=== PATIENT | female | born 1960 | race Caucasian/White ===

== ENCOUNTER 2020-10-09 08:29 | Emergency (ER) | payer OTHER ==
[2020-10-09 10:05] LABS: Absolute Lymphocytes (CBC) 0.5 K/uL (0.7-4.9); Basophils % 0.3 % (0-1.3); Hematocrit 45.3 % (36.0-45.0); Lymphocytes % 7.8 % (15.3-44.8); MPV 6.9 fL (7.6-11.3)
[2020-10-09] MEDS ORDERED: MEPERIDINE HCL 50 MG/ML ONE ×2 (10:21→12:16)
[2020-10-09] MEDS ORDERED: NA CHLORIDE 0.9% 1,000 ML ONE ×2 (10:21→12:20)
[2020-10-09] MEDS ORDERED: ONDANSETRON 4 MG/2 ML VIAL ONE (10:21)
[2020-10-09 10:28] LABS: ALT/SGPT 17 U/L (12-78); AST/SGOT 17 U/L (15-37); Albumin 3.9 g/dL (3.4-5.0); Alkaline Phosphatase 90 U/L (45-117); BUN Blood Urea Nitrogen 32 mg/dL (7-18); Bicarbonate 18 mmol/L (21-32); Bilirubin Direct < 0.1 mg/dL (0-0.2); Bilirubin Total 0.4 mg/dL (0.2-1.0); Glucose Level 97 mg/dL (74-106); Lipase 79 U/L (73-393); Potassium 5.1 mmol/L (3.5-5.1); Protein, Total 8.4 g/dL (6.4-8.2); Sodium Level 135 mmol/L (136-145)
--- NOTE | 2020-10-09 10:44 | RAD REPORT ---
EXAM DESCRIPTION: CT - Abdomen Pelvis W Contrast - 10/09/2020 10:23 am CLINICAL HISTORY: vomiting, diarrhea, metastatic vulvar cancer COMPARISON: CHEST PA AND LAT 2 VIEW dated 04/18/2010 TECHNIQUE: Biphasic, helical CT imaging of the abdomen and pelvis was performed following 100 ml non -ionic IV contrast. No oral contrast given. All CT scans are performed using dose optimization technique as appropriate and may include automated exposure control or mA/KV adjustment according to patient size. FINDINGS: Prominent hyperexpansion COPD changes are present in the lung bases with no acute process seen. No cardiomegaly or pericardial effusion. The liver, spleen, and pancreas show no suspicious findings. Gallbladder is distended but shows no in traluminal abnormality. Gallstones can be occult. No wall thickening or pericholecystic fluid seen. Symmetric renal function is seen with no hydronephrosis or suspicious renal mass. No pyelonephritis o r acute parenchymal process. Well filled urinary bladder shows no wall thickening, edema or enhanceme nt. No bladder stone or intraluminal abnormality seen. No adrenal abnormalities. Uterus is not identified and presumed surgically absent. Ovaries are absent, atrophic or obscured by isodense bowel. Primary ovarian process is not suspected. Fluid-filled stomach shows no gross gastric wall thickening or mass. No dilated large or small bowel loops. There is a paucity of intra-abdominal fat which creates carotid abdominal bowel pattern. No ac fabian large or small bowel finding seen. Appendix is not clearly defined. No indirect evidence for appe ndicitis. No free air or pneumatosis. There does appear to be a trace amount of free intraperitoneal fluid. No hernia, mass or bulky lymphadenopathy. Dense arterial tree calcifications are present. No vertebral body compression fracture. Patient has a dvanced degenerative change at the L4-5 disc level. There is severe right hip joint degenerative hernandez ge. No significant left hip joint change. IMPRESSION: Contrast enhanced CT abdomen and pelvis showing no acute or emergent finding. Nonacute findings detailed in the body of the report.
[2020-10-09 13:00] LABS: White Blood Cell Scan OK (OK)
[2020-10-09 13:01] LABS: Blood Morphology Comment NOT SEEN (NOT SEEN); Platelet Estimate ADEQ
--- NOTE | 2020-10-09 13:27 | EDPHYS ---
Physician Documentation [facility] Name: Patt Cabrera Age: 60 yrs Sex: Female : 1960 Arrival Date: 10/09/2020 Time: 08:36 Bed 2 Private MD: ED Physician Domingo Connolly HPI: 10/09 11:52 This 60 yrs old Female presents to ER via Wheelchair with complaints of Pain rn All Over, Diarrhea, Doesn't Feel Right. 11:52 The patient presents to the emergency department with nausea, diarrhea. Onset: The rn symptoms/episode began/occurred 4 day(s) ago. Possible causes: unknown. The symptoms are aggravated by nothing. The symptoms are alleviated by nothing. Associated signs and symptoms: Pertinent positives: abdominal pain, diarrhea, nausea, Pertinent negatives: fever. Severity of symptoms: At their worst the symptoms were moderate in the emergency department the symptoms are unchanged. The patient has experienced similar episodes in the past. Reports has vulvar cancer, states metastatic, had chemo and treatment in [place] in past, now has been 2 years since last seen doctor, is planning on being seen at [place], but waiting on insurance. Reports chronic diarrhea and unable to control 2/2 tissue damage of cancer and wears diapers. Reports continued weight loss, diarrhea, nausea, fatigue, and generalized malaise, worse over last 4 days. no fever. . Historical: - Allergies: 08:42 No Known Allergies; jd3 - Home Meds: 08:42 Suboxone sublingual sublingual [Active]; jd3 - PMHx: 08:42 vagenal cancer; jd3 - PSHx: 08:42 Hysterectomy; jd3 - Immunization history:: Adult Immunizations up to date. - Social history:: Smoking status: Patient/guardian denies using tobacco, the patient reports quitting approximately 2 years ago. - Family history:: not pertinent. - Hospitalizations: : No recent hospitalization is reported. ROS: 11:52 Constitutional: Negative for fever, chills Eyes: Negative for injury, pain, redness, rn and discharge, ENT: Negative for injury, pain, and discharge, Neck: Negative for injury, pain, and swelling, Cardiovascular: Negative for chest pain, palpitations, and edema, Respiratory: Negative for shortness of breath, cough, wheezing, and pleuritic chest pain, Abdomen/GI: + nausea and diarrhea Back: Negative for injury and pain, MS/Extremity: Negative for injury and deformity, Skin: Negative for injury, rash, and discoloration, Neuro: Negative for headache, numbness, tingling, and seizure. Exam: 11:52 Constitutional: This is a well developed, well nourished patient who is awake, alert, rn and in no acute distress. Head/Face: Normocephalic, atraumatic. ENT: dry MM Cardiovascular: tachycardic, regular Respiratory: No increased work of breathing, no retractions or nasal flaring. Abdomen/GI: soft, non-tender Skin: Warm, dry MS/ Extremity: Pulses equal, no cyanosis. Neuro: Awake and alert, GCS 15, oriented to person, place, time, and situation. Cranial nerves II-XII grossly intact. Motor strength 5/5 in all extremities. Sensory grossly intact. Vital Signs: 08:42 BP 127 / 102; Pulse 120; Resp 17 S; Temp 98.0(TE); Pulse Ox 97% on R/A; Weight 44 kg jd3 (R); Height 5 ft. 2 in. (157.48 cm) (R); Pain 9/10; 10:15 BP 146 / 87; Pulse 85; Resp 16; Pulse Ox 99% ; ll1 11:53 BP 134 / 66; Pulse 81; Resp 17; Pulse Ox 97% on R/A; ll1 14:20 BP 131 / 65; Pulse 80; Resp 17; Pulse Ox 99% ; ll1 08:42 Body Mass Index 17.74 (44.00 kg, 157.48 cm) j MDM: 09:29 Patient medically screened. rn 13:24 Differential diagnosis: diverticulitis, viral gastroenteritis, gastroenteritis. Data rn reviewed: vital signs, nurses notes, lab test result(s), radiologic studies, CT scan, and as a result, I will discharge patient. Counseling: I had a detailed discussion with the patient and/or guardian regarding: the historical points, exam findings, and any diagnostic results supporting the discharge/admit diagnosis, lab results, radiology results, the need for outpatient follow up, to return to the emergency department if symptoms worsen or persist or if there are any questions or concerns that arise at home. Response to treatment: the patient's symptoms have markedly improved after treatment, and as a result, I will discharge patient. Special discussion: Based on the patient's Hx, exam, and Dx evaluation, there is no indication for emergent surgery or inpatient Tx. It is understood by the patient/guardian that if the Sx's persist or worsen they need to return immediately for re-evaluation. I discussed with the patient/guardian in detail that at this point there is no indication for admission to the hospital. It is understood, however, that if the symptoms persist or worsen the patient needs to return immediately for re-evaluation. ED course: NO acute findings on ct, + mild dehydration, will dc home now that feels better, and directed to f/u with either cancer center here or [facility] as planned. . 10/09 09:45 Order name: Basic Metabolic Panel; Complete Time: 10:45 rn 10/09 09:45 Order name: CBC with Diff rn 10/09 09:45 Order name: Hepatic Function; Complete Time: 10:45 rn 10/09 09:45 Order name: Lipase; Complete Time: 10:45 rn 10/09 10:11 Order name: CBC Smear Scan EDID 10/09 14:10 Order name: CREATININE WHOLE BLOOD EDID 10/09 09:45 Order name: CT Abd/Pelvis - IV Contrast Only; Complete Time: 10:45 rn 10/09 09:45 Order name: IV Saline Lock; Complete Time: 09:51 rn 10/09 09:45 Order name: Labs collected and sent; Complete Time: 09:51 rn Administered Medications: 10:11 Drug: NS 0.9% 1000 ml Route: IV; Rate: 1000 ml; Site: right antecubital; ll1 12:05 Follow up: Response: No adverse reaction; IV Status: Completed infusion; IV Intake: ll1 1000ml 10:11 Drug: Zofran (Ondansetron) 4 mg Route: IVP; Site: right antecubital; ll1 11:32 Follow up: Response: No adverse reaction; Nausea is decreased; RASS: Alert and Calm (0) ll1 10:11 Drug: Demerol (meperidine) 50 mg Route: IVP; Site: right antecubital; ll1 11:32 Follow up: Response: No adverse reaction; Pain is decreased; RASS: Alert and Calm (0) ll1 12:04 Drug: Demerol (meperidine) 50 mg Route: IVP; Site: right antecubital; ll1 14:48 Follow up: Response: No adverse reaction; Pain is decreased; RASS: Alert and Calm (0) ll1 12:04 Drug: NS 0.9% 1000 ml Route: IV; Rate: 1 bolus; Site: left antecubital; ll1 14:49 Follow up: Response: No adverse reaction; IV Status: Completed infusion; IV Intake: ll1 1000ml 14:18 Drug: LoMOTIL (diphenoxylate-atropine) 2 tabs Route: PO; ll1 14:49 Follow up: Response: No adverse reaction ll1 14:20 Drug: Zofran (Ondansetron) 4 mg Route: PO; ll1 14:49 Follow up: Response: No adverse reaction; RASS: Alert and Calm (0) ll1 Disposition: 10/09/20 13:26 Discharged to Home. Impression: Diarrhea, unspecified, Dehydration. - Condition is Stable. - Discharge Instructions: Dehydration, Adult, Diarrhea, Adult. - Prescriptions for Zofran 4 mg Oral Tablet - take 1 tablet by ORAL route every 12 hours As needed; 20 tablet. - Medication Reconciliation Form, Thank You Letter, Antibiotic Education, Prescription Opioid Use form. - Follow up: Private Physician; When: As needed; Reason: Recheck today's complaints, Re-evaluation by your physician. - Problem is new. - Symptoms have improved. Signatures: Dispatcher [employer] EDMS Domingo Connolly MD MD rn Davies, Jonathon, RN RN jMecca Crump RN RN ll1 Corrections: (The following items were deleted from the chart) 14: 13:26 10/09/2020 13:26 Discharged to Home. Impression: Diarrhea, unspecified; ll1 Dehydration. Condition is Stable. Forms are Medication Reconciliation Form, Thank You Letter, Antibiotic Education, Prescription Opioid Use. Follow up: Private Physician; When: As needed; Reason: Recheck today's complaints, Re-evaluation by your physician. Problem is new. Symptoms have improved. rn 14:52 14:25 10/09/2020 13:26 Discharged to Home. Impression: Diarrhea, unspecified; ll1 Dehydration. Condition is Stable. Discharge Instructions: Dehydration, Adult, Diarrhea, Adult. Prescriptions for Zofran 4 mg Oral Tablet - take 1 tablet by ORAL route every 12 hours As needed; 20 tablet. and Forms are Medication Reconciliation Form, Thank You Letter, Antibiotic Education, Prescription Opioid Use. Follow up: Private Physician; When: As needed; Reason: Recheck today's complaints, Re-evaluation by your physician. Problem is new. Symptoms have improved. ll1
--- NOTE | 2020-10-09 13:27 | ER ---
Nurse's Notes [facility] Name: Patt Cabrera Age: 60 yrs Sex: Female : 1960 Arrival Date: 10/09/2020 Time: 08:36 Bed 2 Private MD: Diagnosis: Diarrhea, unspecified;Dehydration Presentation: 10/09 08:39 Chief complaint: Friend and/or Co-Worker states: "she has not eaten or drank in days jd3 and she has cancer so her stomach is all messed up.". Coronavirus screen: At this time, the client does not indicate any symptoms associated with coronavirus-19. Ebola Screen: Patient negative for fever greater than or equal to 101.5 degrees Fahrenheit, and additional compatible Ebola Virus Disease symptoms. Initial Sepsis Screen: Does the patient meet any 2 criteria? No. Patient's initial sepsis screen is negative. Does the patient have a suspected source of infection? No. Patient's initial sepsis screen is negative. Risk Assessment: Do you want to hurt yourself or someone else? Patient reports no desire to harm self or others. Onset of symptoms was October 05, 2020. 08:39 Method Of Arrival: Wheelchair jd3 08:39 Acuity: KARI 3 jd3 Historical: - Allergies: 08:42 No Known Allergies; jd3 - Home Meds: 08:42 Suboxone sublingual sublingual [Active]; jd3 - PMHx: 08:42 vagenal cancer; jd3 - PSHx: 08:42 Hysterectomy; jd3 - Immunization history:: Adult Immunizations up to date. - Social history:: Smoking status: Patient/guardian denies using tobacco, the patient reports quitting approximately 2 years ago. - Family history:: not pertinent. - Hospitalizations: : No recent hospitalization is reported. Screenin:45 Fall Risk IV access (20 points). Gait- Weak (10 pts.). Total Mckinnon Fall Scale indicates ll1 Low Risk Score (25-44 pts). Fall prevention measures have been instituted. Side Rails Up X 2 Frequent Obs/Assesments occuring As available Patient and Family Educated on Fall Prevention Program and strategies. 10:14 Abuse screen: Denies threats or abuse. Nutritional screening: No deficits noted. ll1 Tuberculosis screening: No symptoms or risk factors identified. Assessment: 09:30 General: Appears uncomfortable, ill, Behavior is cooperative, appropriate for age, ll1 restless. Pain: Complains of pain in lower abd Quality of pain is described as crampy. Neuro: No deficits noted. Cardiovascular: No deficits noted. Respiratory: No deficits noted. GI: Abdomen is flat, Bowel sounds present X 4 quads. Reports lower abdominal pain, diarrhea, nausea, vomiting. 10:30 Reassessment: No changes from previously documented assessment. Patient and/or family ll1 updated on plan of care and expected duration. Pain level reassessed. 11:30 Reassessment: No changes from previously documented assessment. Patient and/or family ll1 updated on plan of care and expected duration. Pain level reassessed. 12:30 Reassessment: No changes from previously documented assessment. Patient and/or family ll1 updated on plan of care and expected duration. Pain level reassessed. Patient states feeling better. 13:30 Reassessment: No changes from previously documented assessment. Patient and/or family ll1 updated on plan of care and expected duration. Pain level reassessed. Vital Signs: 08:42 BP 127 / 102; Pulse 120; Resp 17 S; Temp 98.0(TE); Pulse Ox 97% on R/A; Weight 44 kg jd3 (R); Height 5 ft. 2 in. (157.48 cm) (R); Pain 9/10; 10:15 BP 146 / 87; Pulse 85; Resp 16; Pulse Ox 99% ; ll1 11:53 BP 134 / 66; Pulse 81; Resp 17; Pulse Ox 97% on R/A; ll1 14:20 BP 131 / 65; Pulse 80; Resp 17; Pulse Ox 99% ; ll1 08:42 Body Mass Index 17.74 (44.00 kg, 157.48 cm) jd3 ED Course: 08:36 Patient arrived in ED. am2 08:40 Triage completed. jd3 08:44 Arm band placed on. jd3 09:29 Domingo Connolly MD is Attending Physician. rn 09:30 Patient has correct armband on for positive identification. Bed in low position. Call ll1 light in reach. Side rails up X2. Pulse ox on. NIBP on. 09:31 Mecca Smith, CHENTE is Primary Nurse. ll1 09:31 Patient placed in an exam room, on a stretcher. ll1 09:48 Radiology exam delayed due to IV insertion attempt and/or patient not having md1 appropriate IV at this time. 09:50 Inserted saline lock: 22 gauge in right antecubital area, using aseptic technique. ll1 Blood collected. 10:22 CT Abd/Pelvis - IV Contrast Only In Process Unspecified. EDMS 14:47 Primary Nurse role handed off by Mecca Smith, CHENTE ll 14:48 Mecca Smith RN is Primary Nurse. 1 14:50 No provider procedures requiring assistance completed. IV discontinued, intact, ll1 bleeding controlled, No redness/swelling at site. Pressure dressing applied. Administered Medications: 10:11 Drug: NS 0.9% 1000 ml Route: IV; Rate: 1000 ml; Site: right antecubital; 1 12:05 Follow up: Response: No adverse reaction; IV Status: Completed infusion; IV Intake: ll1 1000ml 10:11 Drug: Zofran (Ondansetron) 4 mg Route: IVP; Site: right antecubital; 1 11:32 Follow up: Response: No adverse reaction; Nausea is decreased; RASS: Alert and Calm (0) 1 10:11 Drug: Demerol (meperidine) 50 mg Route: IVP; Site: right antecubital; ll1 11:32 Follow up: Response: No adverse reaction; Pain is decreased; RASS: Alert and Calm (0) ll1 12:04 Drug: Demerol (meperidine) 50 mg Route: IVP; Site: right antecubital; 1 14:48 Follow up: Response: No adverse reaction; Pain is decreased; RASS: Alert and Calm (0) 1 12:04 Drug: NS 0.9% 1000 ml Route: IV; Rate: 1 bolus; Site: left antecubital; ll1 14:49 Follow up: Response: No adverse reaction; IV Status: Completed infusion; IV Intake: ll1 1000ml 14:18 Drug: LoMOTIL (diphenoxylate-atropine) 2 tabs Route: PO; ll1 14:49 Follow up: Response: No adverse reaction ll1 14:20 Drug: Zofran (Ondansetron) 4 mg Route: PO; ll1 14:49 Follow up: Response: No adverse reaction; RASS: Alert and Calm (0) [facility] Intake: 12:05 IV: 1000ml; Total: 1000ml. ll1 14:49 IV: 1000ml; Total: 2000ml. ll1 Outcome: 13:26 Discharge ordered by . rn 14:25 Patient left the ED. ll1 14:25 Discharged to home via wheelchair. ll1 14:25 Condition: stable 14:25 Discharge instructions given to patient, family, Instructed on discharge instructions, follow up and referral plans. medication usage, Demonstrated understanding of instructions, follow-up care, medications, Prescriptions given X 1. 14:52 Patient left the ED. ll1 Signatures: Dispatcher [employer] EDMS Domingo Connolly MD MD rn Moreno, Amanda am2 Gerald Ryder RN RN jd3 Adilia Robertson md1 Mecca Smith RN RN ll1
[2020-10-09 14:34] VITALS: TEMP 98
[2020-10-09] MEDS ORDERED: DIPHENOX/ATROP SULF 1 TAB PO ONE (14:35)
[2020-10-09] MEDS ORDERED: ONDANSETRON 4 MG (ODT) TAB ONE (14:38)
[2020-10-09 15:01] VITALS: BP 131/65; O2SAT 99
== END 2020-10-09 14:52 | disposition home or self-care (01) ==
LOC: ER 08:29
DX: E86.0 Dehydration (principal); Z85.89 Personal history of malignant neoplasm of other organs and systems
CPT/HCPCS: 96361; 85025; 80048; 36415; 82565; 80076; 83690; 74177; 96375; 96374; 99284; Q9967; J2175 ×2; J7030 ×2; J2405